=== PATIENT | male | born 1950 | race Caucasian/White ===

== ENCOUNTER → 2019-09-16 11:00 | Outpatient (BNVA) | payer MEDICARE, SELFPAY | PROVIDERS: Family Provider Internal Medicine; PCP Internal Medicine; Visit Provider Internal Medicine | DX: E11.9 Type 2 diabetes mellitus without complications (principal); K75.81 Nonalcoholic steatohepatitis (NASH); E03.9 Hypothyroidism, unspecified; E78.2 Mixed hyperlipidemia; I10 Essential (primary) hypertension; Z95.0 Presence of cardiac pacemaker; E66.01 Morbid (severe) obesity due to excess calories; Z68.43 Body mass index [BMI] 50.0-59.9, adult | CPT/HCPCS: 80053; 80061; 83036; 84443; 85025 ==

== ENCOUNTER → 2021-03-07 10:25 | Outpatient (BNVA) | payer MEDICARE, SELFPAY | PROVIDERS: Family Provider Internal Medicine; PCP Internal Medicine; Visit Provider Internal Medicine | DX: E11.9 Type 2 diabetes mellitus without complications (principal) | CPT/HCPCS: 80053; 80061; 83036; 84443 ==

== ENCOUNTER → 2021-06-12 10:35 | Outpatient (BNVA) | payer MEDICARE, SELFPAY | PROVIDERS: Family Provider Internal Medicine; PCP Internal Medicine; Visit Provider Internal Medicine Cardiovascular Disease | DX: I11.0 Hypertensive heart disease with heart failure (principal); I50.9 Heart failure, unspecified; E11.9 Type 2 diabetes mellitus without complications; E78.1 Pure hyperglyceridemia | CPT/HCPCS: 99214 ==

== ENCOUNTER → 2021-10-03 09:56 | Outpatient (BNVA) | payer MEDICARE, SELFPAY | PROVIDERS: Family Provider Internal Medicine; PCP Internal Medicine; Visit Provider Internal Medicine Cardiovascular Disease | DX: I10 Essential (primary) hypertension (principal); I49.3 Ventricular premature depolarization; E11.9 Type 2 diabetes mellitus without complications; Z95.0 Presence of cardiac pacemaker; I49.9 Cardiac arrhythmia, unspecified; Z87.891 Personal history of nicotine dependence | CPT/HCPCS: 93005; 99214 ==

== ENCOUNTER 2021-10-31 07:43 | Emergency (ER) | payer MEDICARE, SELFPAY ==
[2021-10-31 07:54] VITALS: BP 164/107; PULSE 83; RESP 16; TEMP 36.7; O2SAT 93; BMI 40.3
[2021-10-31 08:37] LABS: Basophils % 0.6 %; Eosinophils # 0.2 10^3/uL (0.0-0.8); Hematocrit 48.9 % (42.0-52.0); Hemoglobin 16.1 g/dL (11.7-16.6); Lymphocytes % 32.4 %; Mean Corpuscular HGB Conc 32.9 g/dL (30.0-36.0); Mean Corpuscular Hemoglobin 33.5 pg (28.0-34.0); Mean Corpuscular Volume 101.7 fl (80-94); Mean Platelet Volume 10.9 fL (7.4-10.4); Monocytes # 0.9 10^3/uL (0.2-0.9); Monocytes % 14.3 %; Neutrophils # 3.07 10^3/uL (1.8-7.7); Neutrophils % 48.9 %; Nucleated Red Blood Cells % 0 %; Platelet Count 195 10^3/cmm (130-400); Red Blood Count 4.81 10^6/uL (4.1-5.3); Red Cell Distribution Width 11.9 % (12.1-15.1); White Blood Count 6.3 10^3/uL (4.0-10.0)
--- NOTE | 2021-10-31 08:55 | ED_ITS ---
Documented by User: DOMINGA Leal 10/31/21 11:41 HPI - Abdominal Pain General: Chief Complaint: Abdominal Pain Stated Complaint: Right side pain Time Seen by Provider: 10/31/21 08:21 Source: patient Mode of arrival: ambulatory Limitations: no limitations History of Present Illness: Patient is a 71-year-old male who presents to ED today with a complaint of right lower abdominal pain. Patient states he initially began noticing pain approximately 3 months ago that seemed to wax and wane. He states severity was minimal so he prolonged any type of medical evaluation. Patient states over the past 2 weeks pain has increased in frequency as well as severity. He states he feels like pain seems to be worse after eating. He does complain of some type of mass-like sensation but denies ever feeling a mass or a bulge consistent with a hernia. Patient is not having any nausea or vomiting. He is reporting normal bowel movements. No fevers. MD elicited complaint: abdominal pain Onset (ago): month(s) Pain Consistency: constant and intermittent Location: RLQ Radiation: none Migration to: no migration Exacerbating factors: eating Associated Symptoms: Denies change in bowel habits, chills, constipation, diarrhea, dysuria, fever(s), hematochezia, hematuria, hematemesis, melena, nausea and vomiting Review of Systems Const: Denies: fever(s), chills, body aches, fatigue or malaise Card: Denies: chest pain Resp: Denies: dyspnea GI: Reports: abdominal pain; Denies: nausea, vomiting, hematemesis, diarrhea, constipation, change in bowel habits, hematochezia or melena : Denies: flank pain, dysuria or hematuria Musc: Denies: neck pain, back pain, extremity pain or joint pain Skin/Breast: Denies: rash Neuro: Denies: headache(s), numbness in extremities, weakness in extremities, sensory changes or dizziness PFSH ED PFSH: Medical History Accelerated essential hypertension Hypertriglyceridemia Labyrinthitis Mixed hyperlipidemia Obesity Pacemaker Type 2 diabetes mellitus without complications Diet controlled. Unspecified asthma, uncomplicated Surgical History H/O hernia repair History of surgery on right wrist History of vocal cord polypectomy Hx of bilateral inguinal hernia repair Hx of cholecystectomy Hx of umbilical hernia repair Family History Grandmother CAD (coronary artery disease) Myocardial infarction Diabetes Father CAD (coronary artery disease) Myocardial infarction Mother Diabetes Stroke Denies family history of Clotting disorder Dementia Chronic kidney disease (CKD) Suicide Anesthesia complication Bleeding disorder Lung disease Cancer Social History Smoking and tobacco status: former smoker Alcohol intake: never History of recent travel: No Physical Exam Const: COMMON NORMALS: no acute distress, patient oriented x3, no limitations and alert GENERAL APPEARANCE: cooperative NUTRITIONAL APPEARANCE: obese morbidly obese ORIENTATION/CONSCIOUSNESS: Yes awake, Yes oriented to person, Yes oriented to place and Yes oriented to time HENMT: COMMON NORMALS: normocephalic and atraumatic HEAD & SCALP: normal to inspection, normocephalic and atraumatic Resp: COMMON NORMALS: normal respiratory effort and clear to auscultation bilaterally AUSCULTATION: clear to auscultation bilaterally Cardio: COMMON NORMALS: regular rate and regular rhythm RATE: regular rate RHYTHM: regular rhythm GI: COMMON NORMALS: Normal to inspection, nondistended, normoactive bowel sounds present, Soft to palpation, No hepatosplenomegaly present and no masses INSPECTION: Yes normal to inspection AUSCULTATION: Yes normoactive bowel sounds PALPATION: Yes Soft to palpation, Yes Tenderness to palpation present (GI) (R lower abdomen), No Guarding due to palpation present (GI), No Rigid due to palpation and Yes No hepatosplenomegaly present OTHER: exam limited by body habitus; pt states he can palpate a mass however I do not appreciate this on exam : COMMON NORMALS: Yes no CVA tenderness BLADDER/KIDNEY EXAM: Yes no CVA tenderness Back/Pelvis: COMMON NORMALS: no CVA tenderness, thoracic and lumbar spine normal to inspection, no thoracic nor lumbar tenderness and thoraco-lumbar ROM normal Extremity: COMMON NORMALS: normal to inspection GENERAL: Yes normal exam except as noted Neuro: YASH COMA SCALE: document GCS findings [place] coma scale eye opening: Spontaneous [place] coma scale verbal response: Orientated Yash coma scale motor response: Obey commands [place] coma scale total score: 15 COMMON NORMALS: patient oriented x3, moves all extremities, no focal motor deficits, no sensory deficits noted and gait normal SENSORIUM/ORIENTATION: Yes alert, Yes oriented to person, Yes oriented to place and Yes oriented to time Skin: COMMON NORMALS: no rashes or lesions noted GENERAL SKIN EXAM: no rashes or lesions noted Course Vital Signs: Vital signs: Vital Signs Temperature 98.0 F 10/31/21 07:54 Pulse Rate 78 10/31/21 09:13 Respiratory Rate 14 10/31/21 09:13 Blood Pressure 145/88 10/31/21 09:13 Pulse Oximetry 99 10/31/21 09:13 Oxygen Delivery Me thod 10/31/21 09:13 MDM - Abdominal Pain Medical Decision Making Patient is a 71-year-old male here for a mass-like sensation to his right lower abdomen that he has had over the past 3 months or so with worsening over the past 2 weeks. I do not palpate any abnormality on physical exam although patient is morbidly obese. Blood work and UA here are unremarkable. CT imaging does show a markedly enlarged prostate suspicious for neoplasia. Patient states he has not had a prostate exam in over a decade. He is not complaining of any urinary/obstructive symptoms at this time. We will have patient follow-up with Dr. Baca in regards to this. Return to ED precautions given. Lab Data : 10/31/21 08:26 10/31/21 08:26 Labs/Radiology: Radiology Impressions Abdomen/Pelvis CT 10/31/21 09:06 IMPRESSION: 1. Appendix in the RIGHT lower quadrant normal. No evidence of acute appendicitis. 2. No obstructing renal or ureteral calculi. 3. Markedly enlarged prostate suspicious for neoplasia. Recommend correlation PSA. 4. Prior cholecystectomy. 5. Fat-containing RIGHT inguinal hernia. Laboratory Results WBC 6.3 10^3/uL (4.0-10.0) 10/31/21 08:26 RBC 4.81 10^6/uL (4.1-5.3) 10/31/21 08:26 Hgb 16.1 g/dL (11.7-16.6) 10/31/21 08:26 Hct 48.9 % (42.0-52.0) 10/31/21 08:26 MCV 101.7 fl (80-94) H 10/31/21 08:26 MCH 33.5 pg (28.0-34.0) 10/31/21 08: MCHC 32.9 g/dL (30.0-36.0) 10/31/21 08: RDW 11.9 % (12.1-15.1) L 10/31/21 08:26 Plt Count 195 10^3/cmm (130-400) 10/31/21 08: MPV 10.9 fL (7.4-10.4) H 10/31/21 08: Neut % (Auto) 48.9 % 10/31/21 08:26 Lymph % (Auto) 32.4 % 10/31/21 08:26 [place] % (Auto) 14.3 % 10/31/21 08: Eos % (Auto) 3.0 % 10/31/21 08: Baso % (Auto) 0.6 % 10/31/21 08: Neut # (Auto) 3.07 10^3/uL (1.8-7.7) 10/31/21 08: Lymph # (Auto) 2.0 10^3/uL (0.8-4.8) 10/31/21 08: [place] # (Auto) 0.9 10^3/uL (0.2-0.9) 10/31/21 08: Eos # (Auto) 0.2 10^3/uL (0.0-0.8) 10/31/21 08: Baso # (Auto) 0.0 10^3/uL (0.0-0.1) 10/31/21 08: Nucleated RBC % (auto) 0 % 10/31/21 08: Nucleated RBCs # 0.0 /100WBC 10/31/21 08:26 Sodium 139 mmol/L (136-145) 10/31/21 08: Potassium 4.3 mmol/L (3.5-5.1) 10/31/21 08: Chloride 104 mmol/L (98-107) 10/31/21 08: Carbon Dioxide 24 mmol/L (22-29) 10/31/21 08:26 Anion Gap 15.3 (5-19) 10/31/21 08:26 BUN 7 mg/dL (8-23) L 10/31/21 08:26 Creatinine 0.6 mg/dL (0.7-1.2) L 10/31/21 08:26 GFR Calculation 133.2 mL/min (90-130) H 10/31/21 08:26 Glucose 111 mg/dL (65-115) 10/31/21 08:26 Calculated Osmolality 287 mOsm/kg (285-295) 10/31/21 08:26 Calcium 8.9 mg/dL (8.5-10.5) 10/31/21 08:26 Total Bilirubin 0.5 mg/dL (0.15-1.2) 10/31/21 08:26 AST 24 U/L (0-40) 10/31/21 08:26 ALT 27 U/L (0-41) 10/31/21 08:26 Alkaline Phosphatase 54 IU/L (40-130) 10/31/21 08:26 Total Protein 6.7 g/dL (6.6-8.7) 10/31/21 08:26 Albumin 4.0 g/dL (3.5-5.2) 10/31/21 08:26 Globulin 2.7 g/dL (1.3-4.6) 10/31/21 08:26 Urine Color Dark yellow (Yellow) 10/31/21 09:39 Urine Appearance Clear (CLEAR) 10/31/21 09:39 Urine pH 5 (5-7) 10/31/21 09:39 Ur Specific [place] 1.015 (1.005-1.030) 10/31/21 09:39 Urine Protein Neg (Negative) 10/31/21 09:39 Urine Glucose (UA) Norm (Normal) 10/31/21 09:39 Urine Ketones Negative (Negative) 10/31/21 09:39 Urine Blood Neg (Negative) 10/31/21 09:39 Urine Nitrate Negative (Negative) 10/31/21 09:39 Urine Bilirubin Neg (Negative) 10/31/21 09:39 Urine Urobilinogen Norm mg/dL (Negative) 10/31/21 09:39 Ur Leukocyte Esterase Negative (Negative) 10/31/21 09:39 Discharge Plan Discharge Patient Disposition: Home Clinical Impression: Enlarged prostate Condition: Stable Prescriptions: No Action zinc gluconate 50 mg tablet 50 mg PO QAM aspirin [Adult Low Dose Aspirin] 81 mg tablet,delayed release (DR/EC) 81 mg PO QAM milk thistle 500 mg capsule 1,000 mg PO QAM Rx Instructions: give with meal/snack (DME) blood sugar diagnostic Strip See Rx Instructions .Route Qty: 100 3RF Rx Instructions: TEST BLOOD GLUCOSE ONCE A DAY psyllium husk 2.6 gram/4.1 gram Powder 2 tsp PO DAILY@11 Turmeric Powder 1 - 2 tsp PO DAILY Rx Instructions: mixes with 8oz of water and other liquids and pepper lisinopril 40 mg tablet 40 mg PO BEDTIME Nitric Oxide Flow 1 tab PO QAM Discharge Orders: Discharge ED (Routine); Ordered 10/31/21 Ordered By: Pauline Blanco Referrals: Paresh Wallis MD [Primary Care Provider] - Dimitri Baca MD [Physician] - Patient Instructions: Opioid Safety Coding Level of Care Code ED Manufacturing Weaver for Chg Fwd Exam Comprehensive Documented by User: Shimon Singer MD 11/12/21 22:51 HPI - Abdominal Pain General: Chief Complaint: Abdominal Pain Stated Complaint: Right side pain Time Seen by Provider: 10/31/21 08:21 PFSH ED PFSH: Medical History Accelerated essential hypertension Hypertriglyceridemia Labyrinthitis Mixed hyperlipidemia Obesity Pacemaker Type 2 diabetes mellitus without complications Diet controlled. Unspecified asthma, uncomplicated Surgical History H/O hernia repair History of surgery on right wrist History of vocal cord polypectomy Hx of bilateral inguinal hernia repair Hx of cholecystectomy Hx of umbilical hernia repair Family History Grandmother CAD (coronary artery disease) Myocardial infarction Diabetes Father CAD (coronary artery disease) Myocardial infarction Mother Diabetes Stroke Denies family history of Clotting disorder Dementia Chronic kidney disease (CKD) Suicide Anesthesia complication Bleeding disorder Lung disease Cancer Social History Smoking and tobacco status: former smoker Alcohol intake: never History of recent travel: No Physical Exam Neuro: YASH COMA SCALE: document GCS findings [place] coma scale total score: 15 Course Vital Signs: Vital signs: Vital Signs Temperature 98.0 F 10/31/21 07:54 Pulse Rate 78 10/31/21 09:13 Respiratory Rate 14 10/31/21 09:13 Blood Pressure 145/88 10/31/21 09:13 Pulse Oximetry 99 10/31/21 09:13 Oxygen Delivery Me thod 10/31/21 09:13 MDM - Abdominal Pain Medical Decision Making Patient is a 71-year-old male here for a mass-like sensation to his right lower abdomen that he has had over the past 3 months or so with worsening over the past 2 weeks. I do not palpate any abnormality on physical exam although patient is morbidly obese. Blood work and UA here are unremarkable. CT imaging does show a markedly enlarged prostate suspicious for neoplasia. Patient sta lillie he has not had a prostate exam in over a decade. He is not complaining of any urinary/obstructive symptoms at this time. We will have patient follow-up with Dr. Baca in regards to this. Return to ED precautions given. I reviewed this documentation by DOMINGA Leal. Shimon Singer MD Emergency Medicine Lab Data : 10/31/21 08:26 10/31/21 08:26 Labs/Radiology: Radiology Impressions Abdomen/Pelvis CT 10/31/21 09:06 IMPRESSION: 1. Appendix in the RIGHT lower quadrant normal. No evidence of acute appendicitis. 2. No obstructing renal or ureteral calculi. 3. Markedly enlarged prostate suspicious for neoplasia. Recommend correlation PSA. 4. Prior cholecystectomy. 5. Fat-containing RIGHT inguinal hernia. Laboratory Results WBC 6.3 10^3/uL (4.0-10.0) 10/31/21 08:26 RBC 4.81 10^6/uL (4.1-5.3) 10/31/21 08:26 Hgb 16.1 g/dL (11.7-16.6) 10/31/21 08:26 Hct 48.9 % (42.0-52.0) 10/31/21 08:26 MCV 101.7 fl (80-94) H 10/31/21 08:26 MCH 33.5 pg (28.0-34.0) 10/31/21 08: MCHC 32.9 g/dL (30.0-36.0) 10/31/21 08: RDW 11.9 % (12.1-15.1) L 10/31/21 08:26 Plt Count 195 10^3/cmm (130-400) 10/31/21 08: MPV 10.9 fL (7.4-10.4) H 10/31/21 08: Neut % (Auto) 48.9 % 10/31/21 08:26 Lymph % (Auto) 32.4 % 10/31/21 08: [place] % (Auto) 14.3 % 10/31/21 08: Eos % (Auto) 3.0 % 10/31/21 08: Baso % (Auto) 0.6 % 10/31/21 08: Neut # (Auto) 3.07 10^3/uL (1.8-7.7) 10/31/21 08: Lymph # (Auto) 2.0 10^3/uL (0.8-4.8) 10/31/21 08: [place] # (Auto) 0.9 10^3/uL (0.2-0.9) 10/31/21 08: Eos # (Auto) 0.2 10^3/uL (0.0-0.8) 10/31/21 08: Baso # (Auto) 0.0 10^3/uL (0.0-0.1) 10/31/21 08: Nucleated RBC % (auto) 0 % 10/31/21 08: Nucleated RBCs # 0.0 /100WBC 10/31/21 08:26 Sodium 139 mmol/L (136-145) 10/31/21 08:26 Potassium 4.3 mmol/L (3.5-5.1) 10/31/21 08: Chloride 104 mmol/L (98-107) 10/31/21 08: Carbon Dioxide 24 mmol/L (22-29) 10/31/21 08:26 Anion Gap 15.3 (5-19) 10/31/21 08:26 BUN 7 mg/dL (8-23) L 10/31/21 08:26 Creatinine 0.6 mg/dL (0.7-1.2) L 10/31/21 08:26 GFR Calculation 133.2 mL/min (90-130) H 10/31/21 08:26 Glucose 111 mg/dL (65-115) 10/31/21 08:26 Calculated Osmolality 287 mOsm/kg (285-295) 10/31/21 08:26 Calcium 8.9 mg/dL (8.5-10.5) 10/31/21 08:26 Total Bilirubin 0.5 mg/dL (0.15-1.2) 10/31/21 08:26 AST 24 U/L (0-40) 10/31/21 08:26 ALT 27 U/L (0-41) 10/31/21 08:26 Alkaline Phosphatase 54 IU/L (40-130) 10/31/21 08:26 Total Protein 6.7 g/dL (6.6-8.7) 10/31/21 08:26 Albumin 4.0 g/dL (3.5-5.2) 10/31/21 08:26 Globulin 2.7 g/dL (1.3-4.6) 10/31/21 08:26 Urine Color Dark yellow (Yellow) 10/31/21 09:39 Urine Appearance Clear (CLEAR) 10/31/21 09:39 Urine pH 5 (5-7) 10/31/21 09:39 Ur Specific [place] 1.015 (1.005-1.030) 10/31/21 09:39 Urine Protein Neg (Negative) 10/31/21 09:39 Urine Glucose (UA) Norm (Normal) 10/31/21 09:39 Urine Ketones Negative (Negative) 10/31/21 09:39 Urine Blood Neg (Negative) 10/31/21 09:39 Urine Nitrate Negative (Negative) 10/31/21 09:39 Urine Bilirubin Neg (Negative) 10/31/21 09:39 Urine Urobilinogen Norm mg/dL (Negative) 10/31/21 09:39 Ur Leukocyte Esterase Negative (Negative) 10/31/21 09:39 Discharge Plan Discharge Patient Disposition: Home Clinical Impression: Enlarged prostate Condition: Stable Prescriptions: No Action zinc gluconate 50 mg tablet 50 mg PO QAM aspirin [Adult Low Dose Aspirin] 81 mg tablet,delayed release (DR/EC) 81 mg PO QAM milk thistle 500 mg capsule 1,000 mg PO QAM Rx Instructions: give with meal/snack (DME) blood sugar diagnostic Strip See Rx Instructions .Route Qty: 100 3RF Rx Instructions: TEST BLOOD GLUCOSE ONCE A DAY psyllium husk 2.6 gram/4.1 gram Powder 2 tsp PO DAILY@11 Turmeric Powder 1 - 2 tsp PO DAILY Rx Instructions: mixes with 8oz of water and other liquids and pepper lisinopril 40 mg tablet 40 mg PO BEDTIME Nitric Oxide Flow 1 tab PO QAM Discharge Orders: Discharge ED (Routine); Ordered 10/31/21 Ordered By: Pauline Blanco Referrals: Paresh Wallis MD [Primary Care Provider] - Dimitri Bcaa MD [Physician] - Patient Instructions: Opioid Safety Coding Level of Care Code ED Manufacturing Weaver for Chg Fwd Exam Comprehensive
--- NOTE | 2021-10-31 09:06 | CT_ITS ---
WS: [id number] CT ABDOMEN PELVIS TECHNIQUE: Noncontrast CT of the abdomen and pelvis with coronal and sagittal reformatted images. CLINICAL INFORMATION: R sided ab pain COMPARISON: None. DLP: 1158.[address] scans at [facility] use at least one of these dose optimization techniques: automated e xposure control; mA and/or kV adjustment per patient size (includes targeted exams where dose is matc hed to clinical indication); or iterative reconstruction. FINDINGS: Normal appendix in the RIGHT lower quadrant. No evidence of acute appendicitis. LEFT adrenal adenoma measuring 2.5 CM. RIGHT adrenal gland is normal. No hydronephrosis in either kidney. No obstructing r enal or ureteral calculi. Lung bases are well aerated. Noncontrast liver is normal. Normal GE junction. Cholecystectomy. Noncon trast spleen is normal. Normal caliber abdominal aorta. Aortic calcification. Markedly enlarged prost ate measuring 7.3 x 5.5 CM. Recommend correlation PSA. Normal sigmoid colon. Disc space narrowing L4- L5 with endplate degenerative changes and sclerosis. Fat-containing RIGHT inguinal hernia. CT/CT abdomen pelvis wo con [id number] IMPRESSION: 1. Appendix in the RIGHT lower quadrant normal. No evidence of acute appendici tis. 2. No obstructing renal or ureteral calculi. 3. Markedly enlarged prostate suspicious for neoplasia. Recommend correlation PSA. 4. Prior cholecystectomy. 5. Fat-containing RIGHT inguinal hernia.
[2021-10-31 09:13] VITALS: BP 145/88; PULSE 78; RESP 14; O2SAT 99
[2021-10-31 09:22] LABS: Alanine Aminotransferase 27 U/L (0-41); Alkaline Phosphatase 54 IU/L (40-130); Anion Gap 15.3 (5-19); Aspartate Amino Transferase 24 U/L (0-40); Blood Urea Nitrogen 7 mg/dL (8-23); Calcium 8.9 mg/dL (8.5-10.5); Carbon Dioxide 24 mmol/L (22-29); Chloride 104 mmol/L (98-107); Globulin 2.7 g/dL (1.3-4.6); Glomerular Filtration Rate 133.2 mL/min (90-130); Glucose 111 mg/dL (65-115); Osmolality Calculated 287 mOsm/kg (285-295); Potassium 4.3 mmol/L (3.5-5.1); Sodium 139 mmol/L (136-145); Total Bilirubin 0.5 mg/dL (0.15-1.2); Total Protein 6.7 g/dL (6.6-8.7)
[2021-10-31 10:05] LABS: Add Urine Microscopic? NO; Charge for UA Resulting for Rev
[2021-10-31 10:25] LABS: Bilirubin Urine Neg (Negative); Blood Urine Neg (Negative); Glucose Urine UA Norm (Normal); Ketones Urine Negative (Negative); Leukocyte Esterase Urine Negative (Negative); Nitrate Urine Negative (Negative); Protein Urine Neg (Negative); Specific Gravity, Urine 1.015 (1.005-1.030); Urine Appearance Clear (CLEAR); Urine Color Dark Yellow (Yellow); Urobilinogen Urine Norm (Negative); pH Urine 5 (5-7)
--- NOTE | 2021-11-02 13:08 | DCPLANNER ---
Addendum entered by Roxy Loyola 12/06/21 09:17: Patient had a follow up appointment with urology - patient did attend appointment. Addendum entered by Roxy Loyola 11/08/21 15:23: Patient has a follow up appointment scheduled for Tuesday, November 30, 2021 at 9:[address] Baca at urology. Clinic will call patient with appointment information. Original Note: poultry barn manager had message to schedule a follow up appointment for patient with urology. poultry barn manager sent patients information to the front office staff at urology. Patients information will be printed and reviewed. Clinic will call patient with appointment information.
== END 2021-10-31 10:43 | disposition home or self-care (01) ==
PROVIDERS: Emergency Provider Physician Assistant; PCP Internal Medicine
DX: N40.0 Benign prostatic hyperplasia without lower urinary tract symptoms (principal); Z79.82 Long term (current) use of aspirin; E78.2 Mixed hyperlipidemia; Z95.0 Presence of cardiac pacemaker; E11.9 Type 2 diabetes mellitus without complications; Z87.891 Personal history of nicotine dependence
CPT/HCPCS: 74176; 80053; 81003; 85025; 99284

== ENCOUNTER → 2021-11-07 15:36 | Outpatient (BNVA) | payer MEDICARE, SELFPAY | PROVIDERS: PCP Internal Medicine; Visit Provider Internal Medicine | DX: Z87.891 Personal history of nicotine dependence (principal) | CPT/HCPCS: 84153 ==

== ENCOUNTER → 2021-11-30 08:22 | Outpatient (BNVA) | payer MEDICARE, SELFPAY | PROVIDERS: PCP Internal Medicine; Visit Provider Urology | DX: N40.0 Benign prostatic hyperplasia without lower urinary tract symptoms (principal); R39.89 Other symptoms and signs involving the genitourinary system | CPT/HCPCS: 99203 ==

== ENCOUNTER → 2022-04-05 08:27 | Outpatient (BNVA) | payer MEDICARE, SELFPAY | PROVIDERS: PCP Family Medicine | DX: Z45.010 Encounter for checking and testing of cardiac pacemaker pulse generator [battery] (principal) | CPT/HCPCS: 93280 ==

== ENCOUNTER → 2022-05-08 10:52 | Outpatient (BNVA) | payer MEDICARE, SELFPAY | PROVIDERS: PCP Family Medicine; Visit Provider Internal Medicine Cardiovascular Disease | DX: Z95.0 Presence of cardiac pacemaker (principal); E78.2 Mixed hyperlipidemia; E11.9 Type 2 diabetes mellitus without complications; I10 Essential (primary) hypertension | CPT/HCPCS: 99214 ==

== ENCOUNTER 2022-05-15 08:06 | Outpatient (CLI) | payer MEDICARE, SELFPAY ==
[2022-05-15 09:07] LABS: Basophils % 0.5 %; Eosinophils # 0.3 10^3/uL (0.0-0.8); Eosinophils % 3.9 %; Hematocrit 46.7 % (42.0-52.0); Hemoglobin 15.8 g/dL (11.7-16.6); Lymphocytes # 2.4 10^3/uL (0.8-4.8); Lymphocytes % 31.6 %; Mean Corpuscular HGB Conc 33.8 g/dL (30.0-36.0); Mean Corpuscular Hemoglobin 34.1 pg (28.0-34.0); Mean Corpuscular Volume 100.9 fl (80-94); Mean Platelet Volume 10.9 fL (7.4-10.4); Monocytes # 1.1 10^3/uL (0.2-0.9); Monocytes % 14.4 %; Neutrophils % 48.7 %; Nucleated Red Blood Cells % 0 %; Platelet Count 242 10^3/cmm (130-400); Red Blood Count 4.63 10^6/uL (4.1-5.3); White Blood Count 7.6 10^3/uL (4.0-10.0)
[2022-05-15 09:32] LABS: INR 1.01 (0.83-1.21); Prothrombin Time (Patient) 13.6 Seconds (12.0-15.1)
[2022-05-15 09:50] LABS: Anion Gap 16.1 (5-19); Blood Urea Nitrogen 10 mg/dL (8-23); Calcium 8.8 mg/dL (8.5-10.5); Carbon Dioxide 24 mmol/L (22-29); Chloride 105 mmol/L (98-107); Glomerular Filtration Rate 111.5 mL/min (90-130); Glucose 115 mg/dL (65-115); NT Pro B Type Natriuretic Pept 1741 pg/mL (0-125); Osmolality Calculated 292 mOsm/kg (285-295); Potassium 4.1 mmol/L (3.5-5.1); Sodium 141 mmol/L (136-145)
== END 2022-05-15 08:07 | disposition home or self-care (01) ==
LOC: LAB 08:09
PROVIDERS: PCP Family Medicine; Visit Provider Internal Medicine Cardiovascular Disease
DX: I10 Essential (primary) hypertension (principal); I49.3 Ventricular premature depolarization; I49.9 Cardiac arrhythmia, unspecified; Z95.0 Presence of cardiac pacemaker
CPT/HCPCS: 36415; 80048; 83880; 85025; 85610; 86850; 86900

== ENCOUNTER 2022-05-20 07:18 | Outpatient (CLI) | payer MEDICARE, SELFPAY ==
[2022-05-20] VITALS (7 sets, daily range): BP systolic 126–168; BP diastolic 71–93; PULSE 61–66; RESP 13–18; TEMP 36.4–36.7; O2SAT 93–95; BMI 41.3; BMI 41.6
--- NOTE | 2022-05-20 09:15 | W.PM.OPSUD ---
Surgery/Procedure H&P Update DATE OF PROCEDURE: May 20, 2022 DATE H&P PERFORMED: 05/08/22 H&P UPDATE INFORMATION: I have reviewed H&P completed within last 30 days, I have examined patient prior to procedure and No changes to prior documentation PREOP DIAGNOSIS: Pacemaker DEBORAH PLANNED PROCEDURE: Operation Date: 05/20/22 08:30 Proposed Procedures p PPM Changeout-in DEBORAH [address]97 [place] 65595,Z95.0, I10, I49.9, I49.3(Not Applicable) - Herlinda Awan MD PATIENT REASSESSED PRIOR TO SEDATION, WITH NO CHANGE NOTED: Yes PHYSICAL EXAM: alert, oriented x 3, clear to auscultation bilaterally and regular rate & rhythm AIRWAY EVAL/ANESTHESIA PLAN: normal airway, see other exam findings, ASA III, Monitored Anesthesia, Local Anesthesia, Risks, benefits & alternatives of sedation and/or procedure discussed and Patient agrees to continue as planned
--- NOTE | 2022-05-20 09:42 | P.OP_ITS ---
Operative Report Date of procedure: May 20, 2022 Pre-op diagnosis: Preop Diagnosis Pacemaker DEBORAH Procedure: PROCEDURE: PACEMAKER REVISION PREOPERATIVE DIAGNOSIS: Pacemaker elective replacement indication. POSTOPERATIVE DIAGNOSIS: Pacemaker elective replacement indication. ESTIMATED BLOOD LOSS: Around 5 milliliters. COMPLICATIONS: None. BRIEF HISTORY: The patient is 71-year-old white male who had a permanent pacemaker implantation for symptomatic bradycardia/sick sinus syndrome. The norman ent was found to have elective replacement indication, during routine office followup evaluation. For further management of patient's condition for the symptomatic bradycardia, the patient required a pacemaker revision. Patient required a dual-chamber pacemaker for symptom relief and the need for AV synchrony The procedure was explained to the patient in detail with the risks and benefits. The risks of bleeding, hematoma, vascular injury, infection and other concomitant complications were explained in detail, which the patient understood well and consented to proceed. PROCEDURES PERFORMED: 1. Explantation of the old pacemaker generator. 2. Implantation of the new generator. The patient brought to the Cardiac Oxidation Operator. The left side of the neck and the subclavian area were cleaned and draped in a sterile fashion. 1% Xylocaine was used for local anesthetic agent. A 2 inch long incision was made just below the previous pacemaker scar. By sharp and blunt dissection, the pacemaker pocket was accessed. The old generator was delivered from the pocket. The generator was detached from the lead. The new Medtronic generator was attached to the lead. The pacemaker pocket was copiously irrigated with vancomycin solution. Complete hemostasis was achieved. The lead was positioned behind the generator and the generator was attached to the pectoralis fascia by suturing with 0 Surgilon. S ponge counts were confirmed. The pacemaker pocket was closed in layers. Skin was approximated using 4-0 Vicryl. EXPLANTED DEVICE: Pacemaker Generator: Brand: Adapta. Model number: [id number]. Serial number: [id number]. Date of implant: 09/26/2011 IMPLANTED DEVICES: Ventricular Lead: Date of implantation: 09/26/2011 Model number: 5076/58 Serial number: [id number] Make: Medtronic. Atrial lead Date of implantation: 09/26/2011 Model number: 5076/52 Serial number: [id number] Make: Medtronic. Implanted Generator: Date of implantation : 05/20/2022 Brand: William CONSTANTIN [place]. Model number: [id number] Serial number: [id number] Make: Medtronic Stimulation Threshold: The ventricular sensing was 5.0 millivolts. Ventricular lead impedance was 437 ohms and the pacing threshold was 1.0 volts at 0.4 milliseconds. The atrial sensing was 4.9 millivolts. Atrial lead impedance was 475 ohms and the pacing threshold was 0.75 volts at 0.4 milliseconds. The pacemaker was set for AAIR/DDDR mode with an upper rate of 130 and a lower rate of 60. A pressure dressing was applied over the pacemaker site. The patient was transferred back to medical floor in stable condition. Sponge counts were correct.
--- NOTE | 2022-05-20 09:49 | PC.NURSE ---
Transfer orders received. Dressing to patients right upper chest clean, dry, et intact. No drainage or hematoma. Vitals stable. No c/o pain or discomfort. Report given to ALY Finley. Patient transferred from CPRU to CSU via wheelchair. All belongs sent to room with patient.
--- NOTE | 2022-05-20 10:25 | PC.NURSE ---
Bedside report received from ALY Krishna. Patient doing well, resting in recliner. Patient educated on activity restriction, patient refuses to use a urinal and states he will be going in the bathroom. Incision site covered with pressure dressing, no leaking or hematoma present at this time. Vital signs stable. Nurse will continue to monitor.
[2022-05-20] MEDS: ceFAZolin 3,000 MG in sodium chloride 0.9% (100 ml) 100 ML 200 MG IV ×2 (15:18→23:36)
--- NOTE | 2022-05-20 16:20 | PC.NURSE ---
Physician orders to d/c fluids and change time for lisinopril 40mg to 1800 from 2100.
[2022-05-20] MEDS: lisinopril 20 mg Tablet 40 MG PO (17:51)
[2022-05-21 06:00] VITALS: PULSE 67
--- NOTE | 2022-05-21 06:00 | ECG_ITS ---
[facility] Test Date: 2022-05-21 Pat Name: Gerald Osullivan Department: Room: 106 Gender: Male Senior Web Applications Developer: : [id number] Requested By: Herlinda Awan Order Number: [id number] Sariah MD: Gamal Gonzales M.D. Measurements Intervals [place] Rate: 70 P: 110 RI: 261 QRS: 5 QRSD: 116 T: -56 QT: 416 QTc: 450 Interpretive Statements ELECTRONIC ATRIAL PACEMAKER MODERATE INTRAVENTRICULAR CONDUCTION DELAY [110+ ms QRS DURATION] ST DEVIATION AND MODERATE T-WAVE ABNORMALITY, CONSIDER ANTEROLATERAL ISCHEMIA [-0.1+ mV T-WAVE IN V3-V6] ST DEVIATION AND MODERATE T-WAVE ABNORMALITY, CONSIDER INFERIOR ISCHEMIA [-0.1+ mV T-WAVE IN II/aVF] No previous ECG available for comparison Electronically Signed On 05-21-2022 17:40:32 INVENTORY CONTROL COORDINATOR by Gamal Gonzales M.D. [id number]
[2022-05-21] MEDS: zinc gluconate 50 mg Tablet PO (07:04)
[2022-05-21] MEDS: amlodipine 10 mg Tablet PO (07:05)
[2022-05-21] MEDS: aspirin 81 mg EC Tablet PO (07:05)
[2022-05-21] MEDS: ceFAZolin 3,000 MG in sodium chloride 0.9% (100 ml) 100 ML 200 MG IV (07:33)
--- NOTE | 2022-05-21 09:49 | P.PN_ITS ---
Subjective Subjective: this patient is admitted to hospital following the revision of the dual-chamber pacemaker for IV antibiotic infusion. The patient remained stable throughout the hospital course. He finished the prescribed courses of IV antibiotics. His vital signs remained stable. He did not have any hematoma bleeding from the pacemaker insertion site. Medications: Medication Review Details: Current Medications Hydrocodone Bitart/Acetaminophen (Hydrocodone-Acetaminophen 5-325 Mg Tablet) 1 tab PO Q4H PRN PRN Reason: MODERATE PAIN Amlodipine Besylate (Amlodipine 10 Mg Tablet) 10 mg PO DAILY [facility] Last Admin: 05/21/22 07:05 Dose: 10 mg Aspirin (Aspirin 81 Mg Ec Tablet) 81 mg PO QAM [facility] Last Admin: 05/21/22 07:05 Dose: 81 mg Lisinopril (Lisinopril 20 Mg Tablet) 40 mg PO BEDTIME [facility] Last Admin: 05/20/22 23:46 Dose: Not Given Zinc Gluconate (Zinc Gluconate 50 Mg Tablet) 50 mg PO QAM [facility] Last Admin: 05/21/22 07:04 Dose: 50 mg Vitals/I&O/Wt Last Vital Signs Temp 97.6 F 05/20/22 12:49 Pulse 67 05/21/22 06:00 Resp 15 05/20/22 09:45 BP 126/71 05/20/22 12:49 Pulse Ox 93 05/20/22 09:45 O2 Del Method 05/20/22 10:29 05/20/22 05/21/22 05/21/22 22:59 06:59 14:59 Intake Total 460 / 940 0 / 940 680 / 680 Balance 460 / 940 0 / 940 680 / 680 Weight last 48 hrs Weight 282 lb Weight 280 lb Physical Exam Narrative: GENERAL: The patient is alert and oriented times three. Not in any acute distress. HEENT: No significant pallor, icterus or lymphadenopathy.Oral cavity: There are no mucous membrane lesions. NECK: Trachea appears to be central. No masses noted. No JVD or thyromegaly appreciated. RESPIRATORY: Chest is symmetrical. No intercostals muscle retraction or any accessory muscle activation. There is no chest wall tenderness. Breath sounds are heard bilaterally. No rales or rhonchi heard. No evidence of any consolidation. No hematoma bleeding at the pacemaker insertion site BREASTS: Deferred. HEART: The heart sounds are normal. No S3 or S4. No significant murmurs. No pericardial rub ABDOMEN: No vessel pulsations or distention. No tenderness. No organomegaly appreciated. Bowel sounds are normally heard. : Deferred. RECTAL: Deferred. LYMPHATIC: No lymphadenopathy noted in the neck. EXTREMITIES: No edema or cyanosis. No clubbing. MUSCULOSKELETAL: No acute joint deformities or swelling SKIN: There are no significant rashes or ecchymosis NEUROPSYCHIATRIC: The patient is alert and oriented x3. Appears to be in a good mood. No tremors or rigidity noted. A&P Assessment and plan (1) Pacemaker at end of battery life: Patient's status post pacemaker revision. Currently remaining stable. Normal pacer function (2) Mixed hyperlipidemia: Continue on the current medications. (3) Type 2 diabetes mellitus without complications: Continue on the current management. Qualifiers: Diabetes mellitus [employer] insulin use: without halfway use Qualified Code(s): E11.9 - Type 2 diabetes mellitus without complications (4) Benign essential hypertension with target blood pressure below 140/90: The blood pressure seems to be stable at this point. We will continue on the current medications. Plan Since the patient remained stable with no new symptoms, he is being discharged home today. Please see the discharge orders for details. Attestations Medical Necessity Statement*: Going home today Coding Level of Care Code 42538 Diagnoses Pacemaker at end of battery life Z45.010 Mixed hyperlipidemia E78.2 Type 2 diabetes mellitus without complications E11.9 Diabetes mellitus [employer] insulin use: without [employer] use Benign essential hypertension with target blood pressure below 140/90 I10
--- NOTE | 2022-05-21 10:47 | PC.NURSE ---
Discharge Note Patient discharged to home via [private vehicle accompanied by spouse. Discharge instructions reviewed with patient and/or office services representative. Mobile pharmacy medications and/or prescriptions provided. Belongings/home medications returned.
== END 2022-05-21 10:47 | disposition home or self-care (01) ==
LOC: CCL 07:19 → CSU 09:57
PROVIDERS: PCP Family Medicine; Visit Provider Internal Medicine Cardiovascular Disease
DX: Z45.010 Encounter for checking and testing of cardiac pacemaker pulse generator [battery] (principal); E78.2 Mixed hyperlipidemia; E11.9 Type 2 diabetes mellitus without complications; I10 Essential (primary) hypertension; Z79.82 Long term (current) use of aspirin; E66.9 Obesity, unspecified; F17.200 Nicotine dependence, unspecified, uncomplicated
CPT/HCPCS: 33213; 36415; 93005; 96361; 96365; 96367; 97165; 99152; 99153; A4216; C1769; C1786; J0690; J2250; J3010; J3370; J7030; J7050

== ENCOUNTER → 2022-06-10 09:53 | Outpatient (BNVA) | payer MEDICARE, SELFPAY | PROVIDERS: PCP Family Medicine; Visit Provider Internal Medicine Cardiovascular Disease | DX: I10 Essential (primary) hypertension (principal); E11.9 Type 2 diabetes mellitus without complications; E78.2 Mixed hyperlipidemia; Z95.0 Presence of cardiac pacemaker; Z79.82 Long term (current) use of aspirin | CPT/HCPCS: 99214 ==

== ENCOUNTER → 2022-09-03 09:48 | Outpatient (BNVA) | payer MEDICARE, SELFPAY | PROVIDERS: PCP Family Medicine; Visit Provider Internal Medicine Cardiovascular Disease | DX: Z45.010 Encounter for checking and testing of cardiac pacemaker pulse generator [battery] (principal) | CPT/HCPCS: 93296 ==

== ENCOUNTER → 2022-12-05 15:01 | Outpatient (BNVA) | payer MEDICARE, SELFPAY | PROVIDERS: PCP Family Medicine; Visit Provider Internal Medicine Cardiovascular Disease | DX: Z45.010 Encounter for checking and testing of cardiac pacemaker pulse generator [battery] (principal) | CPT/HCPCS: 93296 ==

== ENCOUNTER → 2023-06-02 09:52 | Outpatient (BNVA) | payer MEDICARE, SELFPAY | PROVIDERS: PCP Family Medicine; Visit Provider Internal Medicine Cardiovascular Disease | DX: E78.2 Mixed hyperlipidemia (principal); I10 Essential (primary) hypertension; Z95.0 Presence of cardiac pacemaker; I49.3 Ventricular premature depolarization; E11.9 Type 2 diabetes mellitus without complications | CPT/HCPCS: 99214 ==

== ENCOUNTER → 2023-11-26 09:44 | Outpatient (BNVA) | payer MEDICARE, SELFPAY | PROVIDERS: PCP Family Medicine; Visit Provider Internal Medicine Cardiovascular Disease | DX: Z45.010 Encounter for checking and testing of cardiac pacemaker pulse generator [battery] (principal) | CPT/HCPCS: 93296 ==

== ENCOUNTER → 2024-02-25 11:11 | Outpatient (BNVA) | payer MEDICARE, SELFPAY | PROVIDERS: PCP Family Medicine; Visit Provider Internal Medicine Cardiovascular Disease | DX: Z45.010 Encounter for checking and testing of cardiac pacemaker pulse generator [battery] (principal) | CPT/HCPCS: 93296 ==

== ENCOUNTER → 2024-10-05 11:27 | Outpatient (BNVA) | payer MEDICARE, SELFPAY | PROVIDERS: PCP Family Medicine; Visit Provider Internal Medicine Cardiovascular Disease | DX: I10 Essential (primary) hypertension (principal); E78.2 Mixed hyperlipidemia; Z95.0 Presence of cardiac pacemaker; I49.3 Ventricular premature depolarization; E11.9 Type 2 diabetes mellitus without complications; Z87.891 Personal history of nicotine dependence | CPT/HCPCS: 99214 ==

== ENCOUNTER → 2024-12-15 10:37 | Outpatient (BNVA) | payer MEDICARE, SELFPAY | PROVIDERS: PCP Family Medicine; Visit Provider Internal Medicine Cardiovascular Disease | DX: Z45.018 Encounter for adjustment and management of other part of cardiac pacemaker (principal) | CPT/HCPCS: 93296 ==

== ENCOUNTER → 2025-03-16 09:49 | Outpatient (BNVA) | payer MEDICARE, SELFPAY | PROVIDERS: PCP Family Medicine; Visit Provider Internal Medicine Cardiovascular Disease | DX: Z45.018 Encounter for adjustment and management of other part of cardiac pacemaker (principal) | CPT/HCPCS: 93296 ==